=== PATIENT | female | born 1960 | race Caucasian/White ===

== ENCOUNTER 2016-09-26 05:56 | Inpatient (IN) | payer OTHER ==
--- NOTE | 2016-09-25 19:03 | GHP ---
[f rep st] PREOP HISTORY AND PHYSICAL DATE OF ADMISSION: 09/26/2016 HISTORY: The patient is a 56-year-old female who has a long history of progressive right knee pain and arthritis. Her symptoms have progressed over years. She has a history of an ACL reconstruction back in , and subsequent arthroscopy and meniscal work. She has had recent x-rays showing sev ere osteoarthritis, especially medial compartment, MRI confirms [id number] wear in the medial comp artment. She has a slight flexion contracture. Her arthritic knee causes her to limp, impacting wo rk as well as activities of daily living, she has tried medications and therapeutic exercise, and ba sically a full complement of conservative measures for her progressively arthritic knee. A right to [place] knee arthroplasty is planned. SOCIAL HISTORY: She is a nonsmoker. PAST SURGICAL HISTORY: She has had multiple operations including colon resection. She has had a sc ope decompression acromioplasty, right shoulder. Colon resection again in 2010. A Mohs procedure f or skin cancer 2008. A right knee arthroscopy with microfracture 2006. She has had sinus endoscopy in 1995. She has had a right wrist arthroscopy in 1994. Right ankle reconstruction 1992. Basal a nd squamous cell surgery in 1984 and 1989. A left knee lateral release and tonsillectomy in 1965. She has had a C7 fusion. PAST MEDICAL HISTORY: No current medical problems. MEDICATIONS: No prescription meds. She is using just supplements. ALLERGIES: Does have an allergy to Betadine as well as tissue glue, iodine, topical materials. REVIEW OF SYSTEMS: Negative for cardiopulmonary disease. PHYSICAL EXAMINATION: GENERAL: The patient is a well-developed, well-nourished female in no appare nt distress. HEAD AND NECK: Normocephalic, atraumatic. CHEST: Clear. CARDIOVASCULAR: Regular r ate and rhythm. ABDOMEN: Soft. Neurologic: Alert and oriented x3. EXTREMITIES: Exam of the rig ht knee shows a slight flexion contracture, flexing to about 120 degrees. She has medial joint line tenderness. She also has a soft endpoint to her ACL exam showing some ACL laxity without an obviou s pivot shift. Collaterals are stable. No posterior sag. Neurovascular exam is intact. IMAGING: X-rays of the right knee as well as MRIs confirmed varus malalignment, tibial subluxation, narrowing of the medial joint space, and degenerative lipping of all 3 compartments consistent with significant right knee osteoarthritis. She does have a retained screw washer and staple in the med ial proximal tibia. IMPRESSION: Right knee osteoarthritis. PLAN: Right total knee arthroplasty. Benefits and risks of the surgery have been reviewed with the patient including the risk of infection, damage to blood vessels or nerves, failure, loosening of t he components, and need for revision, blood clot in the leg or lung, bleeding and the need for trans fusion. I have reviewed the rigorous nature of the rehabilitation. She has physical therapy lined up. She has signed a consent form and wishes to proceed. /[id number]/MODL
[2016-09-26] MEDS ORDERED: LIDOCAINE 1% 5 ML SDV ID PRN (06:24)
[2016-09-26] MEDS ORDERED: LR 1,000 ML IV ONE (06:24)
[2016-09-26] MEDS ORDERED: ceFAZolin 1 GM/5 ML SYR ONE ×2 (06:44→08:12)
[2016-09-26] MEDS ORDERED: fentaNYL 100 MCG/2 ML INJ ONE (07:01)
[2016-09-26] MEDS ORDERED: PROPOFOL 200 MG/20 ML VIAL ONE (07:02)
[2016-09-26] MEDS ORDERED: METOCLOPRAMIDE 10 MG/2 ML VIAL ONE (07:05)
[2016-09-26] MEDS ORDERED: ONDANSETRON 4 MG/2 ML VIAL ONE (07:05)
[2016-09-26] MEDS ORDERED: LIDOCAINE 2% JELLY 5 ML TUBE ONE (07:05)
[2016-09-26] MEDS ORDERED: MIDAZOLAM 2 MG/2 ML VIAL ONE (07:08)
[2016-09-26] MEDS ORDERED: ROPI/epiNEPH/KETOROLAC JOINT COCKTAIL IU ONE (08:00)
[2016-09-26] MEDS ORDERED: CEFAZOLIN 2 GM/DEXTR 100 ML IV ONE (08:00)
[2016-09-26] MEDS ORDERED: DEXAMETHASONE 4 MG/ML VIAL IVP ONE (08:00)
[2016-09-26] MEDS ORDERED: FAMOTIDINE 20 MG TAB PO ONE (08:00)
[2016-09-26] MEDS ORDERED: ACETAMINOPHEN 325 MG TAB PO ONE (08:00)
[2016-09-26] MEDS ORDERED: CHLORHEXIDINE GLUC HIBICLENS 118 ML BTL TP ONE (08:00)
[2016-09-26] MEDS ORDERED: TRANEXAMIC ACID 880 MG in NS 100 ML IV ONE (08:00)
[2016-09-26] MEDS ORDERED: clonIDINE 1 MG/10 ML VIAL EP ONE (09:57)
[2016-09-26] MEDS ORDERED: BUPIVACAINE 0.5% 30 ML SDV ONE (09:58)
[2016-09-26] MEDS ORDERED: oxyCODONE IR 5 MG TAB PO PRN (10:14)
[2016-09-26] MEDS ORDERED: POLYETHYLENE GLYCOL 3350 17 GM PKT PO PRN (10:14)
[2016-09-26] MEDS ORDERED: CYCLOBENZAPRINE 10 MG TAB PO PRN (10:14)
[2016-09-26] MEDS ORDERED: PROMETHAZINE HCL 25 MG SUPPR PR PRN (10:14)
[2016-09-26] MEDS ORDERED: LACTULOSE 20 GM/30 ML UDCUP PO PRN (10:14)
[2016-09-26] MEDS ORDERED: ONDANSETRON DISINTEGRATING 4 MG TAB PO PRN (10:14)
[2016-09-26] MEDS ORDERED: diphenhydrAMINE 25 MG CAP PO PRN (10:14)
[2016-09-26] MEDS ORDERED: BISACODYL 10 MG SUPP PR PRN (10:14)
[2016-09-26] MEDS ORDERED: METOCLOPRAMIDE 10 MG/2 ML VIAL IVP PRN (10:14)
[2016-09-26] MEDS ORDERED: PHARMACY PAIN CONSULT 1 EA MISC PRN (10:14)
[2016-09-26] MEDS ORDERED: ONDANSETRON 4 MG/2 ML VIAL IVP PRN (10:14)
[2016-09-26] MEDS ORDERED: MAGNESIUM HYDROXIDE 30 ML UDCUP PO PRN (10:14)
[2016-09-26] MEDS ORDERED: TEMAZEPAM 15 MG CAP PO PRN (10:14)
[2016-09-26] MEDS ORDERED: DIPHENOXYLATE/ATROPINE LOMOTIL 1 TAB PO PRN (10:14)
[2016-09-26] MEDS ORDERED: CETIRIZINE 10 MG TAB PO PRN (10:22)
[2016-09-26] MEDS ORDERED: LR 1,000 ML IV SCH (10:30)
--- NOTE | 2016-09-26 11:30 | GOP ---
[f rep st] OPERATIVE REPORT DATE OF OPERATION: 09/26/2016 SURGEON: Feroz Lezama MD FRIT BURNER: MICHAEL Han ANESTHESIOLOGIST: Terry Rivera MD. PREOPERATIVE DIAGNOSIS: Right knee osteoarthritis. Retained hardware, proximal right tibia. POSTOPERATIVE DIAGNOSIS: Right knee osteoarthritis. Retained hardware, proximal right tibia. PROCEDURE PERFORMED: Right total knee arthroplasty, hardware removal, right proximal tibia. FINDINGS: SPECIMENS: Include excised bone. INDICATIONS: The patient is a 56-year-old female who presents with history, exam, x-rays, and MRI c onsistent with severe tricompartment osteoarthritis of the right knee. She has had previous knee pr ocedures and has retained hardware in the proximal tibia including a screw and washer and a staple. It is on the lateral tibial plateau area. DESCRIPTION OF PROCEDURE: The patient was taken to the operating room, and a spinal anesthetic admi nistered by Dr. Rivera, and the patient received IV sedation. She received 2 g of IV Ancef. A tour niquet was placed high on the right thigh. A pad beneath the right hip to neutralize the rotation, and the right leg was prepped and draped free in the usual fashion with chlorhexidine. The limb was elevated, exsanguinated, tourniquet inflated to 300 mmHg. I made a longitudinal incision in the mi dline, dissected through subcutaneous tissue. I used a medial parapatellar arthrotomy and inverted the patella. I measured its thickness at 24 mm. I removed 9 mm of cartilage and bone to accommodat e the implant. I sized the patella to a 35 and drilled PEG holes. The trial patellar component in the [place] patella restored the thickness. Patella was inverted. The knee was flexed. I drilled a pilot plant technician hole in the distal femur using intramedullary alignment jig, 5 degrees of valgus. No flexion contracture, so a simple neutral cut was made distally at 5 degrees of valgus. I sized the femur a t a size 5, and I made appropriate anterior-posterior and chamfer cuts as well as notch cuts for thi s posterior cruciate stabilized joint. The size 5 component was a good fit. I used an extramedulla ry alignment jig on the tibia. I adjusted for posterior slope and rotation. I used a stylus to adenike ge bone resection. I made a perpendicular cut to the long axis. I sized this to a 4. I dialed in the rotation, and I completed the tibial prep. I did do a little soft tissue balancing, including s ome MCL release on this varus knee. Of note, in order to complete the tibial prep, I did make an ad ditional small incision over the proximal lateral tibia, and I removed a cancellous screw and washer as well as a staple. This allowed me to prepare the proximal tibia for the tibial component. Irri gation was used throughout, and I applied cement to the tibia, and placed the tibial component. The femoral component was placed over a cement mantle as was the patellar component. Excess cement rem grisel. I did trial reductions. A size 10 liner provided excellent extension and rollback and good s oft tissue balance, and the crosslink polyethylene liner was snapped into place. I infiltrated a blanka int injection cocktail composed of Marcaine and Toradol. Copious antibiotic irrigation was used. T he arthrotomy was closed with interrupted simple sutures of 0 Mersilene. Subcutaneous tissue in the main incision and the small lateral incision, closed with 2-0 Monocryl. The skin was closed with s taples on the main incision and with interrupted horizontal mattress sutures, 4-0 Prolene on the lat eral incision. The wound was dressed with Adaptic, 4 x 4's, sterile Webril. Of note, the patient m ay have some chlorhexidine sensitivity, so we tried to wash off the excess chlorhexidine except for the location of the wound. I used sterile Webril and a long-leg ALLISON stocking. She will receive an adductor block by Anesthesia in recovery. There were no complications. The estimated blood loss wa s minimal. No drains. COUNTS: All counts were correct. DISPOSITION: The patient was taken in stable condition to recovery. My assistant news director, Seferino Martinez, PAC, was a medical necessity for soft tissue retraction an d leg positioning. SUMMARY OF COMPONENTS: This is a [employer] bi-cruciate stabilized knee. All compone nts cemented. The femur is Oxinium. The articular insert crosslink polyethylene. Femur size 5, ti yvonne size 4, patella 35. The articular tray 10 mm thick. /[id number]/MODL
[2016-09-26] MEDS: ACETAMINOPHEN 325 MG TAB PO SCH ×3 (12:51→23:05)
[2016-09-26] MEDS: ceFAZolin 2 GM/DEXTROSE 100 ML IV SCH ×2 (13:48→20:56)
[2016-09-26] MEDS: KETOROLAC 30 MG/1 ML SDV IVP PRN (14:01)
[2016-09-26 19:49] VITALS: RESP 16; TEMP 97.9
[2016-09-26] MEDS: SENNOSIDES/DOCUSATE SODIUM TAB PO SCH (20:56)
[2016-09-26] MEDS: ASPIRIN 325 MG TAB PO SCH (20:56)
[2016-09-26] MEDS: FAMOTIDINE 20 MG TAB PO SCH (20:56)
[2016-09-27 04:28] VITALS: BP 103/67
[2016-09-27 05:13] LABS: HEMATOCRIT 32.4 % (38.0-47.0)
[2016-09-27] MEDS: ACETAMINOPHEN 325 MG TAB PO SCH (05:33)
--- NOTE | 2016-09-27 07:46 | SOAPPROG ---
SOAP Progress Note Assessment/Plan: Assessment: 09/27/16 POD#1 R TKA, pain controlled. Hct 32, has been up Plan: 09/27/16 07:44 PT/OT, home, oxy asa Objective: Vital Signs Temp Pulse Resp BP Pulse Ox 36.6 C 62 16 103/67 96 09/27/16 04:00 09/27/16 04:00 09/27/16 04:00 09/27/16 04:00 09/27/16 04:00 Laboratory Results 09/27/16 04:17 09/26/16 09/27/16 09/28/16 05:59 05:59 05:59 Intake Total 4421 Output Total 3250 Balance 1171 ICD10 Worksheet Patient Problems: Problems Problem Status Onset Osteoarthritis of right knee Acute - ICD10 Problem Qualifiers (1) Osteoarthritis of right knee Qualifiers: Osteoarthritis type: O
[2016-09-27] MEDS: ASPIRIN 325 MG TAB PO SCH (08:04)
[2016-09-27] MEDS: SENNOSIDES/DOCUSATE SODIUM TAB PO SCH (08:04)
[2016-09-27] MEDS: FAMOTIDINE 20 MG TAB PO SCH (08:04)
[2016-09-27] MEDS: KETOROLAC 30 MG/1 ML SDV IVP PRN (09:30)
[2016-09-27 09:53] VITALS: PULSE 94; O2SAT 97
== END 2016-09-27 09:59 | disposition home or self-care (01) | DRG 470 ==
LOC: F3N 05:56
PROVIDERS: ADMIT Orthopaedic Surgery; ATTEND Orthopaedic Surgery
PROC: 0SRC0J9 Replacement of Right Knee Joint with Synthetic Substitute, Cemented, Open Approach (ICD-10-PCS; principal; 2016-09-26 07:15)
DX: M17.11 Unilateral primary osteoarthritis, right knee (principal); Z85.820 Personal history of malignant melanoma of skin; Z98.1 Arthrodesis status
CPT/HCPCS: 97110-GP; 97116-GP; 97161-GP; 97165-GO; 97530-GP; C1713; J0171; J0690; J0735; J1100; J1885; J2250; J2405; J2704; J2765; J2795; J3010

== ENCOUNTER → 2018-04-13 | Outpatient (CLI) | payer OTHER | LOC: CIMAGING 07:38 | PROVIDERS: ATTEND Family Medicine Sports Medicine | DX: Z12.31 Encounter for screening mammogram for malignant neoplasm of breast (principal) ==